=== PATIENT | female | born 1965 | race African-American/Black ===

== ENCOUNTER 2019-10-16 09:19 | Inpatient (IN) ==
[2019-10-16] MEDS ORDERED: ONDANSETRON 4 MG/2 ML VIAL IV STA (09:59)
[2019-10-16] MEDS ORDERED: SODIUM CHLORIDE 0.9% 1,000 ML IV STA ×2 (09:59→13:51)
[2019-10-16 10:11] LABS: Basophils % 0.1 % (0.0-0.8); Hematocrit 50.9 VOL% (35.7-47.0); Immature Granulocytes % 0.6 %; Immature Granulocytes Absolute 0.04 #; Lymphocytes # 1.8 10*3/uL (1.4-4.0); Lymphocytes % 24.5 % (21.3-54.2); Mean Corpuscular HGB Conc 31.4 GM/DL (32-36); Mean Corpuscular Volume 85.4 FL (87-102); Mean Platelet Volume 9.5 FL (9.6-12.0); Monocytes % 7.1 % (1.7-12.7); Neutrophils % 67.7 % (38.7-73.9); Platelet Count 232 T/CUMM (130-400); Red Blood Count 5.96 MC/CUMM (3.8-5.5); Red Cell Distribution Width 14.5 % (9.3-17.3); White Blood Count 7.2 T/CUMM (4-12)
[2019-10-16 10:27] LABS: Alanine Aminotransferase 53 U/L (13-56); Albumin 3.5 G/DL (3.4-5.0); Alkaline Phosphatase 52 U/L (45-117); Aspartate Amino Transferase 54 U/L (0-37); Bilirubin,Total < 0.39 MG/DL (0.2-1.0); Blood Urea Nitrogen 48 MG/DL (7-18); Calcium 9.2 MG/DL (8.5-10.1); Estimated Glom Filtration Rate 20 ML/MIN; Glucose 97 MG/DL (74-106); Osmolality,Calculated 276.5 MOS/KG (273-304); Total Protein 8.4 G/DL (6.4-8.3)
[2019-10-16 10:30] LABS: Lymphocytes 28 % (20-55); Platelet Estimate Adequate; Segmented Neutrophils 64 % (50-85); Total Cells Counted 100
[2019-10-16 11:05] LABS: Amorphous Crystals,Urine Few /HPF (Few); Apearance,Urine CLOUDY (Clear); Bacteria,Urine Occasional /HPF (Few); Bilirubin,Urine Negative (Negative); Blood, Urine Small mg/dL (Negative); Glucose,Urine (UA) Negative (Negative); Hyaline Casts,Urine 20 /LPF (0-3); Ketones,Urine 5 mg/dL (Negative); Mucus,Urine Occasional /LPF (Occasional); Nitrite,Urine Negative (Negative); Protein,Urine >=500 MG/DL; RBC,Urine 8 /HPF (0-4); Squamous Epithelial Cell,Urine Occasional /HPF (0-10); Urine Color Amber (Yellow); Urine Specific Gravity 1.018 (1.001-1.035); Urine Urobilinogen < 2.0 EU/DL (0.2-1.0)
[2019-10-16] MEDS ORDERED: AZITHROMYCIN INJ 500 MG in SODIUM CHLORIDE 0.9% 250 ML IV STA (12:09)
[2019-10-16] MEDS ORDERED: cefTRIAXone 1,000 MG in SODIUM CHLORIDE 0.9% 100 ML IV STA (12:09)
[2019-10-16] MEDS ORDERED: hydrALAZINE 20 MG/1 ML VIAL IV PRN (12:24)
[2019-10-16] MEDS ORDERED: GLUCAGON 1 MG VIAL IM PRN (12:24)
[2019-10-16] MEDS ORDERED: DEXTROSE 50% 25 GM/50 ML VIAL IV PRN (12:24)
[2019-10-16] MEDS ORDERED: SODIUM CHLORIDE 0.9% 1,000 ML IV SCH (12:30)
[2019-10-16 12:49] LABS: Ferritin 972.2 ng/ml (8-252)
[2019-10-16] MEDS ORDERED: ALBUTEROL SULFATE INH SCH (15:45)
[2019-10-16] MEDS: ONDANSETRON 4 MG/2 ML VIAL IV PRN (15:50)
[2019-10-16] MEDS ORDERED: ENOXAPARIN 30 MG/0.3 ML SYRINGE SUBCUT SCH (16:00)
[2019-10-16] MEDS ORDERED: INSULIN REGULAR 100 UNIT/ML SUBCUT SCH (16:30)
[2019-10-16] MEDS: SODIUM CHLORIDE 0.45% 1,000 ML IV SCH ×2 (17:28→23:39)
[2019-10-16] MEDS: cefTRIAXone 1,000 MG in SYRINGE 1 EACH IV SCH (17:30)
[2019-10-16] MEDS: BUDESONIDE/FORMOTEROL 80-4.5 INHALER 6.9 GM INH SCH (22:03)
[2019-10-16] MEDS: ACETAMINOPHEN 325 MG TABLET PO PRN (22:16)
[2019-10-17 04:41] LABS: Basophils % 0.2 % (0.0-0.8); Eosinophils % 0.2 % (0.00-10.9); Hematocrit 40.2 VOL% (35.7-47.0); Hemoglobin 12.1 GM/DL (12.0-16.0); Immature Granulocytes % 0.2 %; Immature Granulocytes Absolute 0.01 #; Lymphocytes # 1.9 10*3/uL (1.4-4.0); Lymphocytes % 45.3 % (21.3-54.2); Mean Corpuscular HGB Conc 30.1 GM/DL (32-36); Mean Corpuscular Volume 88.7 FL (87-102); Mean Platelet Volume 9.2 FL (9.6-12.0); Monocytes % 9.2 % (1.7-12.7); Neutrophils % 44.9 % (38.7-73.9); Platelet Count 187 T/CUMM (130-400); Red Blood Count 4.53 MC/CUMM (3.8-5.5); Red Cell Distribution Width 14.4 % (9.3-17.3); White Blood Count 4.1 T/CUMM (4-12)
[2019-10-17 05:18] LABS: Albumin 2.3 G/DL (3.4-5.0); Bilirubin,Total 1.1 MG/DL (0.2-1.0); Calcium 7.7 MG/DL (8.5-10.1); Osmolality,Calculated 277.8 MOS/KG (273-304); Risk Ratio 3.84; Thyroid Stimulating Hormone 0.432 uIU/ml (0.358-3.74); Total Protein 5.7 G/DL (6.4-8.3)
[2019-10-17 05:52] LABS: Platelet Estimate Adequate; Polychromasia Few
[2019-10-17] MEDS: SODIUM CHLORIDE 0.45% 1,000 ML IV SCH ×3 (06:34→21:51)
[2019-10-17] MEDS: cefTRIAXone 1,000 MG in SYRINGE 1 EACH IV SCH (10:39)
[2019-10-17] MEDS: PANTOPRAZOLE 40 MG TABLET PO SCH (10:40)
[2019-10-17] MEDS: MONTELUKAST 10 MG TABLET PO SCH (10:41)
[2019-10-17] MEDS: levETIRAcetam 500 MG TABLET PO SCH (10:41)
[2019-10-17] MEDS: AZITHROMYCIN 250 MG TABLET PO SCH (10:41)
[2019-10-17] MEDS: BUDESONIDE/FORMOTEROL 80-4.5 INHALER 6.9 GM INH SCH ×2 (10:47→21:51)
[2019-10-17] MEDS: ONDANSETRON 4 MG/2 ML VIAL IV PRN (11:08)
[2019-10-17 13:19] LABS: Apearance,Urine CLEAR (Clear); Bilirubin,Urine Negative (Negative); Blood, Urine Small mg/dL (Negative); Glucose,Urine (UA) Negative (Negative); Ketones,Urine 5 mg/dL (Negative); Nitrite,Urine Negative (Negative); Protein,Urine 30 MG/DL; RBC,Urine <1 /HPF (0-4); Squamous Epithelial Cell,Urine Occasional /HPF (0-10); Urine Color Straw (Yellow); Urine Specific Gravity 1.009 (1.001-1.035); Urine Urobilinogen < 2.0 EU/DL (0.2-1.0); WBC,Urine 1 /HPF (0-6)
[2019-10-17] MEDS: ENOXAPARIN 40 MG/0.4 ML SYRINGE SUBCUT SCH (21:50)
[2019-10-17] MEDS: ACETAMINOPHEN 325 MG TABLET PO PRN (21:51)
[2019-10-18 05:20] LABS: Basophils % 0.2 % (0.0-0.8); Hematocrit 35.8 VOL% (35.7-47.0); Hemoglobin 10.8 GM/DL (12.0-16.0); Immature Granulocytes % 0.4 %; Immature Granulocytes Absolute 0.02 #; Lymphocytes % 18.4 % (21.3-54.2); Mean Corpuscular HGB Conc 30.2 GM/DL (32-36); Mean Platelet Volume 9.5 FL (9.6-12.0); Monocytes % 6.3 % (1.7-12.7); Neutrophils % 74.7 % (38.7-73.9); Platelet Count 186 T/CUMM (130-400); Red Blood Count 4.07 MC/CUMM (3.8-5.5); Red Cell Distribution Width 14.2 % (9.3-17.3); White Blood Count 5.4 T/CUMM (4-12)
[2019-10-18] MEDS: SODIUM CHLORIDE 0.45% 1,000 ML IV SCH (05:26)
[2019-10-18 05:37] LABS: Alanine Aminotransferase 32 U/L (13-56); Albumin 2.1 G/DL (3.4-5.0); Alkaline Phosphatase 32 U/L (45-117); Aspartate Amino Transferase 32 U/L (0-37); Bilirubin,Total < 0.39 MG/DL (0.2-1.0); Blood Urea Nitrogen 15 MG/DL (7-18); Calcium 7.8 MG/DL (8.5-10.1); Estimated Glom Filtration Rate 56 ML/MIN; Glucose 91 MG/DL (74-106); Osmolality,Calculated 270.1 MOS/KG (273-304); Total Protein 5.7 G/DL (6.4-8.3)
[2019-10-18] MEDS ORDERED: POTASSIUM CHLORIDE 20 MEQ TABLET PO ONE (07:37)
[2019-10-18] MEDS: levETIRAcetam 500 MG TABLET PO SCH (08:18)
[2019-10-18] MEDS: PANTOPRAZOLE 40 MG TABLET PO SCH (08:18)
[2019-10-18] MEDS: MONTELUKAST 10 MG TABLET PO SCH ×2 (08:18→20:30)
[2019-10-18] MEDS: cefTRIAXone 1,000 MG in SYRINGE 1 EACH IV SCH (08:18)
[2019-10-18] MEDS: AZITHROMYCIN 250 MG TABLET PO SCH (08:18)
[2019-10-18] MEDS: BUDESONIDE/FORMOTEROL 80-4.5 INHALER 6.9 GM INH SCH ×2 (08:18→20:30)
[2019-10-18] MEDS: ACETAMINOPHEN 325 MG TABLET PO PRN (17:26)
[2019-10-18] MEDS: HYDROXYCHLOROQUINE 200 MG TABLET PO SCH (17:26)
[2019-10-18] MEDS: ENOXAPARIN 40 MG/0.4 ML SYRINGE SUBCUT SCH (20:30)
[2019-10-19 05:36] LABS: Basophils % 0.2 % (0.0-0.8); Eosinophils % 0.2 % (0.00-10.9); Hematocrit 37.5 VOL% (35.7-47.0); Hemoglobin 11.4 GM/DL (12.0-16.0); Immature Granulocytes % 0.9 %; Immature Granulocytes Absolute 0.05 #; Lymphocytes # 1.1 10*3/uL (1.4-4.0); Lymphocytes % 18.9 % (21.3-54.2); Mean Corpuscular HGB Conc 30.4 GM/DL (32-36); Mean Platelet Volume 9.4 FL (9.6-12.0); Monocytes % 6.2 % (1.7-12.7); Neutrophils % 73.6 % (38.7-73.9); Platelet Count 191 T/CUMM (130-400); Red Blood Count 4.26 MC/CUMM (3.8-5.5); Red Cell Distribution Width 14.2 % (9.3-17.3); White Blood Count 5.8 T/CUMM (4-12)
[2019-10-19] MEDS: HYDROXYCHLOROQUINE 200 MG TABLET PO SCH ×2 (05:38→17:38)
[2019-10-19 06:02] LABS: Calcium 8.3 MG/DL (8.5-10.1); Lymphocytes 13 % (20-55); Platelet Estimate Normal; Polychromasia Few; Segmented Neutrophils 83 % (50-85); Total Cells Counted 100
[2019-10-19] MEDS: levETIRAcetam 500 MG TABLET PO SCH (09:16)
[2019-10-19] MEDS: MONTELUKAST 10 MG TABLET PO SCH ×2 (09:17→20:15)
[2019-10-19] MEDS: PANTOPRAZOLE 40 MG TABLET PO SCH (09:17)
[2019-10-19] MEDS: BUDESONIDE/FORMOTEROL 80-4.5 INHALER 6.9 GM INH SCH ×2 (09:18→20:15)
[2019-10-19] MEDS: ACETAMINOPHEN 325 MG TABLET PO PRN ×2 (09:18→20:30)
[2019-10-19] MEDS: AZITHROMYCIN 250 MG TABLET PO SCH (09:18)
[2019-10-19] MEDS: ENOXAPARIN 40 MG/0.4 ML SYRINGE SUBCUT SCH (20:30)
[2019-10-20 04:42] LABS: Basophils % 0.2 % (0.0-0.8); Eosinophils % 0.7 % (0.00-10.9); Hemoglobin 11.1 GM/DL (12.0-16.0); Immature Granulocytes Absolute 0.06 #; Lymphocytes # 1.3 10*3/uL (1.4-4.0); Lymphocytes % 20.9 % (21.3-54.2); Mean Corpuscular HGB Conc 30.8 GM/DL (32-36); Mean Corpuscular Volume 85.1 FL (87-102); Monocytes % 9.3 % (1.7-12.7); Neutrophils % 67.9 % (38.7-73.9); Platelet Count 256 T/CUMM (130-400); Red Blood Count 4.23 MC/CUMM (3.8-5.5); Red Cell Distribution Width 14.1 % (9.3-17.3)
[2019-10-20 05:02] LABS: Calcium 8.6 MG/DL (8.5-10.1); Osmolality,Calculated 269.8 MOS/KG (273-304)
[2019-10-20] MEDS: HYDROXYCHLOROQUINE 200 MG TABLET PO SCH (05:55)
[2019-10-20] MEDS: AZITHROMYCIN 250 MG TABLET PO SCH (08:30)
[2019-10-20] MEDS: PANTOPRAZOLE 40 MG TABLET PO SCH (08:30)
[2019-10-20] MEDS: MONTELUKAST 10 MG TABLET PO SCH (08:30)
[2019-10-20] MEDS: BUDESONIDE/FORMOTEROL 80-4.5 INHALER 6.9 GM INH SCH (08:30)
[2019-10-20] MEDS: levETIRAcetam 500 MG TABLET PO SCH (10:10)
[2019-10-20 13:22] VITALS: BP 98/40
[2019-10-20] MEDS ORDERED: ZINC SULFATE 220 MG CAPSULE PO SCH (15:00)
== END 2019-10-20 15:03 | disposition home or self-care (01) | DRG 177 ==
LOC: N.ED 09:19 → N.EDINP 12:25 → SUATTDRO 12:25 → N.2W 14:00
PROVIDERS: ADMIT Internal Medicine; ATTEND Family Medicine